=== PATIENT | female | born 1975 | race Caucasian/White ===

== ENCOUNTER → 2016-06-17 | Outpatient (CLI) | payer OTHER ==
--- NOTE | 2016-06-17 20:30 | CT ---
EXAMINATION TYPE: CT abdomen pelvis w con DATE OF EXAM: 06/17/2016 5:11 PM HISTORY: LLQ pain CT DLP: 828.6mGycm Automated Exposure Control for Dose Reduction was Utilized. CONTRAST: CT scan of the abdomen and pelvis is performed with IV Contrast, patient injected with 100 mL of Omni paque 300. COMPARISON: None. FINDINGS: LUNG BASES: No significant abnormality is appreciated. LIVER/GB: Cholecystectomy clips are noted. PANCREAS: No significant abnormality is seen. SPLEEN: No significant abnormality is seen. ADRENALS: No significant abnormality is seen. KIDNEYS: No significant abnormality is seen. BOWEL: The oral contrast does not reach colonic level. No suspicious small or large bowel dilatation is seen. Normal-appearing appendix is seen from cecum. Somewhat redundant sigmoid colon is present. UTERUS/ADNEXA: Uterus is surgically absent or markedly atrophic in appearance. LYMPH NODES: No greater than 1cm abdominal or pelvic lymph nodes are appreciated. OSSEOUS STRUCTURES: Mild facet arthropathy lower lumbar levels is seen. OTHER: No significant additional abnormality is seen. IMPRESSION: No significant acute finding is seen to account for patient's clinical symptoms.
== END | disposition home or self-care (01) ==
LOC: RADCTMAIN 15:44
PROVIDERS: ATTEND Family Medicine
DX: R10.9 Unspecified abdominal pain (principal)
CPT/HCPCS: 74177; Q9967

== ENCOUNTER → 2016-10-10 | Outpatient (CLI) | payer OTHER ==
--- NOTE | 2016-10-10 17:09 | XR ---
EXAMINATION TYPE: XR Hip Bilateral Complete DATE OF EXAM: 10/10/2016 COMPARISON: NONE HISTORY: Hip pain TECHNIQUE: 4 views FINDINGS: AP and frog leg views of both hips show no fracture nor dislocation. Joint spaces are cherrie l. IMPRESSION: Normal bilateral hip exam.
== END | disposition home or self-care (01) ==
LOC: RADXRMAIN 16:46
PROVIDERS: ATTEND Family Medicine
DX: M25.552 Pain in left hip (principal); M25.551 Pain in right hip
CPT/HCPCS: 73521

== ENCOUNTER → 2017-05-19 | Outpatient (CLI) | payer OTHER ==
[2017-05-16 14:47] VITALS: BMI 29.9
[2017-05-19 12:24] VITALS: BP 101/73; PULSE 65; RESP 16
--- NOTE | 2017-05-19 12:47 | P.CONS ---
History of Present Illness - Reason for Consult Consult date: 05/19/17 - Chief Complaint Left lower abdominal pain - History of Present Illness This is a 42-year-old female with history of left lower abdominal pain for which she had tubal ligation and hysterectomy then left inguinal hernia repair with the pain did not change after the surgeries. The pain is constant does fluctuate in intensity sometimes it prevents the patient from falling asleep however it does not wake her up once she is asleep. The pain does not radiate and it is localized in the left inguinal area. The patient denies any tingling or numbness in the area. There are no exacerbating or relieving factors. The patient failed to respond to Lyrica previously and right now she takes only ibuprofen for her pain. She also tried [place] but she did not like the side effects of it and she stopped using it. The patient had an injection at her primary care physician office in that area which helped her pain for 1 day but the repeated injection did not give her any relief of her pain. The patient describes her pain as sharp in quality. Review of Systems Constitutional: Denies as per HPI, Denies anorexia, Denies chills, Denies chronic headaches, Denies chronic pain, Denies daytime sleepiness, Denies fatigue, Denies fever, Denies lethargy, Denies malaise, Denies night sweats, Denies poor appetite, Denies sweats, Denies weakness, Denies weight gain, Denies weight loss Ears, nose, mouth and throat: Denies as per HPI, Denies ant. neck pain, Denies bleeding gums, Denies dental pain, Denies dysphagia, Denies epistaxis, Denies headache, Denies hoarseness, Denies mouth pain, Denies nasal congestion, Denies nasal discharge, Denies neck fullness/pressure, Denies neck lump, Denies nose pain, Denies odynophagia, Denies post-nasal drip, Denies sinus pain, Denies sinus pressure, Denies swelling in mouth, Denies swelling in throat, Denies sore throat, Denies vertigo, Denies voice changes Cardiovascular: Denies as per HPI, Denies chest pain, Denies claudication, Denies decreased exercise tolerance, Denies dyspnea on exertion, Denies edema, Denies high blood pressure, Denies irregular heart beat, Denies leg edema, Denies lightheadedness, Denies orthopnea, Denies palpitations, Denies paroxysmal nocturnal dyspnea, Denies phlebitis, Denies rapid heart beat, Denies shortness of breath, Denies syncope Respiratory: Denies as per HPI, Denies congestion, Denies cough, Denies cough with sputum, Denies dyspnea, Denies excessive sputum, Denies hemoptysis, Denies home oxygen, Denies pain, Denies pain on inspiration, Denies pleurisy, Denies respiratory infections, Denies sleep apnea, Denies snoring, Denies wheezing Gastrointestinal: Reports abdominal pain Genitourinary: Denies as per HPI, Denies abnormal vaginal bleeding, Denies decreased libido, Denies difficulty conceiving, Denies difficulty voiding, Denies dysmenorrhea, Denies dyspareunia, Denies dysuria, Denies flank pain, Denies genital sores, Denies hematuria, Denies hot flashes, Denies incomplete emptying, Denies kidney stones, Denies menorrhagia, Denies mixed incontinence, Denies nocturia, Denies pelvic pain, Denies post void dribbling, Denies , Denies prolapse symptoms, Denies stress incontinence, Denies urge incontinence , Denies urgency, Denies urinary frequency, Denies vaginal discharge, Denies vaginal dryness, Denies vaginal itching, Denies vaginal odor Past Medical History Past Medical History: Asthma Additional Past Medical History / Comment(s): has mesh from hernia surgery " body is rejecting it"- causing abdominal pain. childhood asthma History of Any Multi-Drug Resistant Organisms: None Reported Past Surgical History: Cholecystectomy, Hernia Repair, Hysterectomy Additional Past Surgical History / Comment(s): D&C Left inguinal hernia repair - November 2015 Past Anesthesia/Blood Transfusion Reactions: No Reported Reaction Additional Past Anesthesia/Blood Transfusion Reaction / Comm: Pt has never recieved blood. Past Psychological History: No Psychological Hx Reported Additional Psychological History / Comment(s): . Smoking Status: Former smoker Past Alcohol Use History: None Reported Additional Past Alcohol Use History / Comment(s): quit smoking 20 yrs ago, smoked for 3 yrs, < 1 PPD Past Drug Use History: None Reported - Past Family History Father Family Medical History: Hypertension Mother Family Medical History: No Reported History Additional Family Medical History / Comment(s): Mother is healthy. Pt states maternal grandmother had breast cancer. Medications and Allergies Home Medications Medication Instructions Recorded Confirmed Type Multivitamin [Children's 2 tab PO DAILY 08/09/14 05/19/17 History Multivitamins] Ibuprofen [Motrin] 800 mg PO BID PRN 05/16/17 05/19/17 History Allergies Allergy/AdvReac Type Severity Reaction Status Date / Time Penicillins Allergy Rash/Hives Verified 05/19/17 12:08 Physical Exam Vitals: Vital Signs Pulse Resp BP 05/19/17 12:09 65 16 101/73 - Psychiatric Psychiatric: A&O x's 3, appropriate affect The patient is obese alert oriented 3 in no apparent distress. Lungs are clear to auscultation, heart is regular no murmurs. The patient has normal muscle strength in the lower extremities symmetrically. Straight leg raising test negative on the left side Flexion of the left hip did not increases her abdominal pain Internal and external rotation of the left hip did not increases her abdominal pain Alexandru's test negative on the left side She does have mild tenderness right beneath her inguinal hernia repair incision between the inguinal ligament inferiorly and the pubic tubercle medially and the previous scar superiorly. The skin around this painful area looks normal with no erythema. Assessment and Plan Plan: This is a 42-year-old female with left groin pain that did not improve after hysterectomy and inguinal hernia repair. Pain is localized to the area and does not radiate. There is no paresthesia in the area. I'm not sure about the etiology of this pain however can try to do a diagnostic left ilioinguinal nerve block under ultrasound guidance and depending on the results we'll decide our next step. There might also be a component of myofascial pain. The patient failed to respond to Lyrica previously and she takes only ibuprofen for her pain and she is to continue doing that. I thank you for the consultation
== END ==
LOC: EDSEX 11:30 → PNWHC3 11:39
PROVIDERS: ATTEND Anesthesiology
DX: R10.30 Lower abdominal pain, unspecified (principal); Z90.710 Acquired absence of both cervix and uterus; Z98.890 Other specified postprocedural states; Z88.0 Allergy status to penicillin; Z79.1 Long term (current) use of non-steroidal anti-inflammatories (NSAID); Z87.891 Personal history of nicotine dependence
CPT/HCPCS: 99211

== ENCOUNTER 2017-06-16 08:13 | Day surgery (SDC) | payer OTHER ==
[2017-06-12 09:30] VITALS: BMI 29.9
[2017-06-16] MEDS ORDERED: LIDOCAINE 1% 20 ML VIAL (10MG/ML) FOR IV START INTRADERMA ONE (08:48)
--- NOTE | 2017-06-16 08:48 | P.PCN ---
Date of Procedure: 06/16/17 Preoperative Diagnosis: Ilioinguinal Neuralgia Postoperative Diagnosis: Ilioinguinal Neuralgia Condition: stable Disposition: PACU Description of Procedure: Preoperative diagnoses: 1-ilioinguinal neuralgia. Postoperative diagnoses: 1- Ilioinguinal neuralgia. Procedure= Ilioinguinal nerve block with ultrasound guidance. Anesthesia= conscious sedation with Versed 2 mg local infiltration with lidocaine 1% 4 ml Estimated blood loss=minimal. Procedure indication: the patient had a history of severe chronic groin pain, diagnosed with ilioinguinal neuralgia , chronic post surgical pain, and unresponsive to conservative treatment. and patient here to have ilioinguinal nerve block Procedure description: The patient was seen and identified in the preoperative holding area, risks and benefits and alternative of the procedure and possible complications discussed with the patient, and he agreed with the preceding, patient signed the consent, an IV was started, and vital signs were monitored and were stable throughout the procedure, patient was placed in the supine position on the stretcher and the groin and lower abdomen area was prepped, and draped with a sterile fashion , vital signs were closely monitored during the procedure, the linear ultrasound probe was placed in the medial and superior aspect of the on the iliac Crest, ,the Transvurs abdominus muscle,and the internal obique muscules identified, and the locations of the ilioinguinal nerve identified , local infiltration of the skin and subcutaneous tissue with lidocaine 1% 2 mL then a 20 -gauge 2 inches ultrasound needle advanced slowly with continous visualizations of the needle tip , and needle was in close proxemity of the ilioinguinal nerve , and after appropriate needle placement confirmed withe ultrasound ,the negative aspiration for heme , and there was no paresthesia during the injection, 10 ml of Marcaine 0.5% and 40 mg Kenalog , injected after negative aspiration, the needle removed, Then the skin was cleaned and a Band-Aid applied, the patient transported to recovery room in stable condition and he was monitored for 30 minutes before he was discharged home and then patient was reexamined before going home and patient was discharged in stable condition and patient will follow up with the pain clinic in a few weeks
[2017-06-16 08:58] VITALS: TEMP 97.7
[2017-06-16] MEDS ORDERED: LACTATED RINGERS 1,000 ML IV ONE (09:08)
[2017-06-16] MEDS ORDERED: IV FLUID CONTINUATION 1,000 ML IV ONE (10:03)
[2017-06-16 10:09] VITALS: RESP 18
[2017-06-16 10:21] VITALS: BP 100/76; PULSE 78
== END 2017-06-16 10:34 | disposition home or self-care (01) ==
LOC: ORPAIN 08:13
PROVIDERS: ATTEND Anesthesiology
DX: G89.29 Other chronic pain (principal); G58.8 Other specified mononeuropathies; Z88.0 Allergy status to penicillin; Z90.710 Acquired absence of both cervix and uterus
CPT/HCPCS: 64425; J2250; J3301; 99152

== ENCOUNTER 2017-07-16 06:22 | Day surgery (SDC) | payer OTHER ==
[2017-07-14 12:02] VITALS: BMI 29.9
[2017-07-16 06:45] VITALS: RESP 16; TEMP 97.9
[2017-07-16] MEDS ORDERED: LIDOCAINE 1% 20 ML VIAL (10MG/ML) FOR IV START INTRADERMA ONE (06:48)
[2017-07-16] MEDS ORDERED: LACTATED RINGERS 1,000 ML IV ONE (06:48)
[2017-07-16] MEDS ORDERED: LACTATED RINGERS 1,000 ML IV SCH (07:00)
--- NOTE | 2017-07-16 07:50 | P.PCN ---
Date of Procedure: 07/16/17 Procedure(s) Performed: te: 06/16/17 08:45 Date of Procedure: 07/16/2017 Preoperative Diagnosis: Left Ilioinguinal Neuralgia Postoperative Diagnosis: Left Ilioinguinal Neuralgia Condition: stable Disposition: PACU Description of Procedure: Preoperative diagnoses: 1- left ilioinguinal neuralgia. Postoperative diagnoses: 1-left Ilioinguinal neuralgia. Procedure= left Ilioinguinal nerve block with ultrasound guidance. Anesthesia= moderate sedation with Versed 2 mg and Fentanyle 50 mcg ,local infiltration with lidocaine 1% 2 ml Estimated blood loss=none Procedure indication: the patient had a history of severe chronic left groin pain, diagnosed with left ilioinguinal neuralgia , chronic post surgical pain, and unresponsive to conservative treatment. and patient here to have left ilioinguinal nerve block Procedure description: The patient was seen and identified in the preoperative holding area, risks and benefits and alternative of the procedure and possible complications discussed with the patient, and he agreed with the preceding, patient signed the consent, an IV was started, and vital signs were monitored and were stable throughout the procedure, patient was placed in the supine position on the stretcher and the groin and lower abdomen area was prepped, and draped with a sterile fashion , vital signs were closely monitored during the procedure, the linear ultrasound probe was placed in the medial and superior aspect of the on the iliac Crest, ,the Transvurs abdominus muscle,and the internal obique muscules identified, and the locations of the ilioinguinal nerve identified , local infiltration of the skin and subcutaneous tissue with lidocaine 1% 2 mL then a 20 -gauge 4 inches ultrasound needle advanced slowly with continous visualizations of the needle tip , and needle was in close proxemity of the ilioinguinal nerve , and after appropriate needle placement confirmed withe ultrasound ,the negative aspiration for heme , and there was no paresthesia during the injection, 10 ml of Marcaine 0.5% and 80 mg Kenalog , injected after negative aspiration, the needle removed, Then the skin was cleaned and a Band-Aid applied, the patient transported to recovery room in stable condition and he was monitored for 30 minutes before he was discharged home and then patient was reexamined before going home and patient was discharged in stable condition and patient will follow up with the pain clinic in a few weeks
[2017-07-16] MEDS ORDERED: IV FLUID CONTINUATION 1,000 ML IV ONE (07:56)
[2017-07-16 08:13] VITALS: PULSE 60
[2017-07-16 08:20] VITALS: BP 103/70
== END 2017-07-16 08:29 | disposition home or self-care (01) ==
LOC: ORPAIN 06:22
PROVIDERS: ATTEND Specialist
DX: G58.8 Other specified mononeuropathies (principal); Z88.0 Allergy status to penicillin
CPT/HCPCS: 64425; J2250; J3301; J3010; 99152

== ENCOUNTER → 2017-07-29 | Outpatient (CLI) | payer OTHER | LOC: PNWHC3 14:18 | PROVIDERS: ATTEND Specialist | DX: R10.30 Lower abdominal pain, unspecified (principal); Z53.9 Procedure and treatment not carried out, unspecified reason ==

== ENCOUNTER → 2017-08-20 | Outpatient (CLI) | payer OTHER ==
[2017-08-20 13:51] VITALS: BP 109/75; PULSE 85; RESP 18
--- NOTE | 2017-08-20 14:30 | P.PN ---
Progress Note - Text Progress Note Date: 08/20/17 Patient returns for followup for chronic left sided groin pain. Patient recently underwent ilioinguinal NB x 2 which provided numbness of the skin overlying the left groin but no relief. Patient continues on no regular medications for pain. Patient denies adverse drug effects from medications. Today, pt denies new-onset weakness, bowel/bladder incontinence, or any other signs or symptoms of cauda equina syndrome. There are no signs of acute intoxication, and no indications of medication diversion or overuse. In addition to above, 13-point review of systems is also negative for chest pain , shortness of breath, changes in vision, changes in hearing, new onset weakness , abdominal pain, diarrhea, extreme fatigue, malaise, fever, skin changes, homicidal or suicidal ideation, or bowel or bladder incontinence. Vital Signs: Reviewed in EMR Gen: WDWN, AAOx3, NAD HEENT: NCAT, EOMI, hearing grossly normal Pulm: resp unlabored Neck: supple, trachea midline Lower extremity: TTP left groin medial to femoral artery Imaging: Reviewed in EMR Assessment: 1. chronic postsurgical pain 2. s/p hernia repair Plan: 1. Explanation: Opioid and psychological risk scores were reviewed. Diagnoses , prognoses, and multiple treatment options including but not limited to physical therapy, interventional therapies, adjuvant medical therapies, narcotic medication therapies, and surgery were discussed with the patient and all questions were answered to the patient's satisfaction. 2. Opioid agreement: no opioids prescribed today 3. Counseling: The patient was counseled extensively on BODY MASS INDEX, EXERCISE. Specifically, the patient was instructed regarding the importance of weight control, and exercise in the context of both chronic pain and overall health. 4. Procedures: none 5. Consultations: None 6. Investigations: MAPS queried and appropriate 7. Medications: none prescribed 8. Morphine equivalents per day prescribed: zero 9. Disposition: f/u PRN. Patient has pain in an isolated location in the groin , and has had two IINBs without any relief of pain. I advised her to return to surgeon for further options. PQRS measures: 1-Patient's medications are documented in the chart. 2-Tobacco use is negative 3-Patient has not had a pneumococcal vaccine. 4-Advanced care planning discussed, patient unable to give. 5-Opioid contract NOT signed with the patient. 6-Pain positive, follow-up visit or procedure scheduled 7-Patient's blood pressure measured and documented, and patient will follow up with the primary care due to hypertension. 8-Patient's weight was measured, and body mass index ABOVE the normal limits, and counseling was done. Patient instructed to follow up with PCP. 9-Patient WAS NOT identified as an unhealthy alcohol user.
== END | disposition home or self-care (01) ==
LOC: PNWHC3 13:41
PROVIDERS: ATTEND Anesthesiology
DX: G89.28 Other chronic postprocedural pain (principal); R10.32 Left lower quadrant pain; Z98.890 Other specified postprocedural states
CPT/HCPCS: 99211

== ENCOUNTER 2019-04-09 20:22 | Emergency (ER) | payer OTHER ==
[2019-04-09 20:29] VITALS: BP 115/81; PULSE 93; RESP 20; TEMP 97.9
--- NOTE | 2019-04-09 20:54 | ED ---
Head Injury HPI - General Chief complaint: Head Injury Stated complaint: [facility] Head Injury Time Seen by Provider: 04/09/19 20:33 Source: patient Mode of arrival: ambulatory Limitations: no limitations - History of Present Illness Initial comments: 44-year-old female patient presents to the emergency department today for evaluation of headache and memory disturbance. Patient states 6 days ago she sustained a head injury at work. The states that she struck her head on a metal beam on the ceiling. She states that she was evaluated 2 days after when she began experiencing severe persistent headaches. Patient states she is also experiencing "foggy" vision. She states that she was evaluated at urgent care and diagnosed with concussion. Patient states over the last couple of days she has had increasing difficulty with her memory. States that she will be driving and forget where she is going, we'll get to the grocery a forgot why she is there, and states that she has forgotten her phone and left lights on. States that she does not usually have problems like this. Friend who is present states that patient is talking different than usual, states that she sound "drunk". She states that the headaches seem to have improved however they are still intermittent. States they are over the left confucianist and left side of her head. Patient states her vision remains foggy. Patient denies any use of anticoagulants or antiplatelet medication. Denies history of head injury. Patient denies any neck pain, back pain, chest pain, shortness of breath, dizziness, weakness, abdominal pain, nausea, vomiting, or difficulties with bowel movements or urination. - Related Data Allergies/Adverse reactions: Allergies Allergy/AdvReac Type Severity Reaction Status Date / Time Penicillins Allergy Rash/Hives Verified 04/09/19 20:29 Review of Systems ROS Statement: Those systems with pertinent positive or pertinent negative responses have been documented in the HPI. ROS Other: All systems not noted in ROS Statement are negative. Past Medical History Past Medical History: Asthma Additional Past Medical History / Comment(s): has mesh from hernia surgery "body is rejecting it"- causing abdominal pain. childhood asthma History of Any Multi-Drug Resistant Organisms: None Reported Past Surgical History: Cholecystectomy, Hernia Repair, Hysterectomy Additional Past Surgical History / Comment(s): D&C, Left inguinal hernia repair - November 2015 Past Anesthesia/Blood Transfusion Reactions: No Reported Reaction Additional Past Anesthesia/Blood Transfusion Reaction / Comment(s): Pt has never recieved blood. Past Psychological History: No Psychological Hx Reported Smoking Status: Former smoker Past Alcohol Use History: None Reported Past Drug Use History: None Reported - Past Family History Father Family Medical History: Hypertension Mother Family Medical History: No Reported History Additional Family Medical History / Comment(s): Mother is healthy. Pt states maternal grandmother had breast cancer. General Exam Limitations: no limitations General appearance: alert, in no apparent distress, other (This is a well- developed, well-nourished adult female patient in no acute distress. Vital signs upon presentation are temperature 97.9F, pulse 93, respirations 20, blood pressure 115/81, pulse ox 96% on room air.) Head exam: Present: atraumatic, normocephalic, normal inspection Eye exam: Present: normal appearance, PERRL, EOMI. Absent: scleral icterus, conjunctival injection, nystagmus, periorbital swelling Neck exam: Present: normal inspection. Absent: tenderness, meningismus, lymphadenopathy Respiratory exam: Present: normal lung sounds bilaterally. Absent: respiratory distress, wheezes, rales, rhonchi, stridor Cardiovascular Exam: Present: regular rate, normal rhythm, normal heart sounds. Absent: systolic murmur, diastolic murmur, rubs, gallop, clicks GI/Abdominal exam: Present: soft, normal bowel sounds. Absent: distended, tenderness, guarding, rebound, rigid Neurological exam: Present: alert, oriented X3, CN II-XII intact Expanded Speech: Present: fluid speech Cranial nerves: EOM's Intact: Normal, Tongue Deviation: Normal, Nystagmus: Normal Cerebellar function: Finger to Nose: Normal Motor strength exam: RUE: 5, LUE: 5, RLE: 5, LLE: 5 Eye Response: (4) open spontaneously Motor Response: (6) obeys commands Verbal Response: (5) oriented Vicki Total: 15 Psychiatric exam: Present: normal affect, normal mood Skin exam: Present: warm, dry, intact, normal color. Absent: rash Course Vital Signs 04/09/19 20:25 Temperature 97.9 F Pulse Rate 93 Respiratory 20 Rate Blood Pressure 115/81 O2 Sat by Pulse 96 Oximetry Medical Decision Making - Medical Decision Making 44-year-old female patient percents into the emergency department today for evaluation of memory difficulties and persistent headaches after head injury 6 days ago. Physical examination is unremarkable. She is neurologically intact with no focal deficits. Answers all questions appropriately. CT brain and facial bones was negative for any acute abnormalities. We did discuss concussion as a cause for her symptoms. She'll be discharged pop with her primary care physician as well as neurologist. She is given the next few days off of work and instructed to decrease mental and physical stimulation. Return parameters are discussed in detail. She verbalizes understanding and agrees with this plan. - Radiology Data Radiology results: report reviewed, image reviewed CT brain without contrast was obtained. Report was reviewed in its entirety. Impression by Dr. Kay shows impression shows normal unenhanced head computed tomography scan. CT facial bones without contrast was obtained. Report is reviewed in its entirety. Impression by Dr. Kay shows negative computed tomography scan of the facial bones. No fracture. Disposition Clinical Impression: Concussion Disposition: HOME SELF-CARE Condition: Good Instructions (If sedation given, give patient instructions): Concussion (ED) Additional Instructions: Increase fluids. Rest. Decreased physical and mental stimulation. Follow-up with neurology for further evaluation as soon as possible. Follow-up through primary care physician for recheck in 1-2 days. Return to the emergency department immediately for any new, worsening, or concerning symptoms. Is patient prescribed a controlled substance at d/c from ED?: No Referrals: Lawrence Jaquez DO [Primary Care Provider] - 1-2 days Jewell Ribera MD [Medical Doctor] - 1-2 days Time of Disposition: 21:34
--- NOTE | 2019-04-09 21:17 | CT ---
EXAMINATION TYPE: CT brain wo con DATE OF EXAM: 04/09/2019 COMPARISON: None HISTORY: headache X 6 days following head injury CT DLP: combined DLP 785 mGycm Automated exposure control for dose reduction was used. Ventricles and sulci appear normal. There is no mass effect nor midline shift. There is no sign of in tracranial hemorrhage. The calvarium is intact. There is no evidence of cerebral edema. Skull base is intact. Impression new left normal unenhanced head CT scan.
--- NOTE | 2019-04-09 21:23 | CT ---
EXAMINATION TYPE: CT facial bones wo con DATE OF EXAM: 04/09/2019 COMPARISON: None HISTORY: headache X 6 days following head injury CT DLP: combined DLP 785 mGycm Automated exposure control for dose reduction was used. Multiple axial sections were obtained from the bottom of the mandible to the top of the frontal sinus es without contrast. The mandibular ring is intact. Temporomandibular joints appear intact. Zygomatic arches appear normal . There is normal appearance of the maxilla. Nasal bone is intact. Orbital margins are intact. There is no evidence of a blowout fracture. There is bilateral patency of the ostiomeatal complex. There is normal aeration of the paranasal sinuses. There is no evidence of orbital mass. IMPRESSION: Negative CT scan of the facial bones. No fracture.
== END 2019-04-09 21:45 | disposition home or self-care (01) ==
LOC: EC 20:22
DX: S06.0X0A Concussion without loss of consciousness, initial encounter (principal); Z87.891 Personal history of nicotine dependence; Z88.0 Allergy status to penicillin; W22.8XXA Striking against or struck by other objects, initial encounter; Y92.69 Other specified industrial and construction area as the place of occurrence of the external cause; Y99.0 Civilian activity done for income or pay
CPT/HCPCS: 70450; 70486; 99283

== ENCOUNTER 2022-02-16 07:41 | Emergency (ER) | payer OTHER ==
[2022-02-16 07:59] VITALS: TEMP 98
[2022-02-16] MEDS ORDERED: KETOROLAC 15 MG/ML 1 ML VIAL IM STA (08:29)
--- NOTE | 2022-02-16 08:29 | ED ---
General Adult HPI - General Chief complaint: Skin/Abscess/Foreign Body Stated complaint: Breast pain Time Seen by Provider: 02/16/22 08:05 Source: patient, RN notes reviewed Mode of arrival: ambulatory Limitations: no limitations - History of Present Illness Initial comments: Patient is a 46-year-old female presenting to the emergency room with complaints of left breast pain. She reports that she was seen at urgent care on Friday (3 days ago) for pain and lump in her left breast and was placed on clindamycin for mastitis. She reports that the pain and swelling has worsened and she called the urgent care back and was advised to present to the emergency room. She states on Friday of this week she had bilateral nipple piercings that she removed due to both breasts swelling. She states that her right breast swelling resolved without any further issues however her left breast continues to be swollen and tender with redness on the lower outer aspect of the breast near the nipple ranging from approximately 2:00 to 5:00. She also has tenderness in the upper outer aspect. There is a large area of soft tissue inflammation at the area of erythema along with at the axilla tail region. She has not fused erythremia streaking or warmth to the breast. She denies any nipple drainage or discharge. She states that she has been taking clindamycin as prescribed. She denies any other symptoms including any chest pain, shortness of breath, abdominal pain, nausea, vomiting, fevers or chills. She has past medical history significant for asthma. - Related Data Allergies Allergy/AdvReac Type Severity Reaction Status Date / Time Penicillins Allergy Rash/Hives Verified 02/16/22 07:59 Review of Systems ROS Statement: Those systems with pertinent positive or pertinent negative responses have been documented in the HPI. ROS Other: All systems not noted in ROS Statement are negative. Past Medical History Past Medical History: Asthma Additional Past Medical History / Comment(s): has mesh from hernia surgery "body is rejecting it"- causing abdominal pain. childhood asthma History of Any Multi-Drug Resistant Organisms: None Reported Past Surgical History: Cholecystectomy, Hernia Repair, Hysterectomy Additional Past Surgical History / Comment(s): D&C, Left inguinal hernia repair - November 2015 Past Anesthesia/Blood Transfusion Reactions: No Reported Reaction Additional Past Anesthesia/Blood Transfusion Reaction / Comment(s): Pt has never recieved blood. Past Psychological History: No Psychological Hx Reported Smoking Status: Never smoker Past Alcohol Use History: None Reported Past Drug Use History: None Reported - Past Family History Father Family Medical History: Hypertension Mother Family Medical History: No Reported History Additional Family Medical History / Comment(s): Mother is healthy. Pt states maternal grandmother had breast cancer. General Exam General appearance: alert, in no apparent distress Head exam: Present: atraumatic, normocephalic, normal inspection Eye exam: Present: normal appearance, PERRL, EOMI. Absent: scleral icterus, conjunctival injection, periorbital swelling ENT exam: Present: normal exam, mucous membranes moist Neck exam: Present: normal inspection, full ROM Respiratory exam: Present: normal lung sounds bilaterally, other (Left breast tenderness and swelling with palpable area of tissue inflammation cystic or fibrocystic in nature at upper outer region towards axilla along with at area of erythema as indicated below.). Absent: respiratory distress, wheezes, rales, rhonchi, stridor, accessory muscle use Cardiovascular Exam: Present: regular rate, normal rhythm, normal heart sounds. Absent: systolic murmur, diastolic murmur, rubs, gallop, clicks GI/Abdominal exam: Present: soft, normal bowel sounds. Absent: distended, tenderness, guarding, rebound, rigid Extremities exam: Present: normal inspection. Absent: pedal edema, joint swelling Back exam: Present: normal inspection, full ROM Neurological exam: Present: alert, oriented X3, CN II-XII intact Psychiatric exam: Present: normal affect, normal mood Skin exam: Present: erythema (Left breast extending full length of breasts from chest wall to areole a ranging from approximately) Course Vital Signs 02/16/22 02/16/22 07:56 10:37 Temperature 98 F Pulse Rate 68 82 Respiratory 18 18 Rate Blood Pressure 118/75 105/69 O2 Sat by Pulse 99 100 Oximetry Medical Decision Making - Medical Decision Making 46-year-old female presenting to the emergency room with complaints of breast pain and swelling ongoing for approximately 1 week unchanged with clindamycin from urgent care. Will obtain CBC, BMP and ultrasound of the left breast. Will give Toradol for pain. Will defer IV antibiotics at this time. Verbal report of ultrasound received from substation technician; she reports no focal collection of fluid, tissue swelling consistent with inflammation along with tenderness to an enlarged lymph node near the axilla region consistent with inf ection. Will give one-time IV dose of clindamycin continue oral clindamycin at this time. Discussed potential for alternative antibiotic therapy of oral Bactrim. Patient agreeable to continue oral clindamycin at this time. and concerns answered. Return parameters to the emergency room reviewed. Will discharge home on oral antibiotics in stable condition with follow-up with her primary care provider. Case discussed with Dr. Anguiano. Disposition Clinical Impression: Mastitis, left, acute Disposition: HOME SELF-CARE Condition: Stable Instructions (If sedation given, give patient instructions): Mastitis (ED) Additional Instructions: Please complete course of clindamycin antibiotic as already prescribed. Stay well hydrated. Utilize ibuprofen for fevers and pain and swelling as needed. Please follow-up with your primary care provider. Please return to the Emergency Department if symptoms worsen or any other concerns. Is patient prescribed a controlled substance at d/c from ED?: No Referrals: Manish Villeda MD [Primary Care Provider] - 1-2 days Time of Disposition: 11:21
[2022-02-16] MEDS ORDERED: CLINDAMYCIN 300 MG in DEXTROSE 5% IN WATER 50 ML IVPB STA ×2 (11:08)
[2022-02-16 11:25] LABS: Basophils # (A) 0.1 k/uL (0-0.2); Basophils % (A) 1 %; Eosinophils # (A) 0.1 k/uL (0-0.7); Eosinophils % (A) 2 %; HCT 39.7 % (34.0-46.0); HGB 13.8 gm/dL (11.4-16.0); Lymphocytes # (A) 1.1 k/uL (1.0-4.8); Lymphocytes % (A) 24 %; MCH 31.9 pg (25.0-35.0); MCHC 34.7 g/dL (31.0-37.0); Mean Platelet Volume 7.8; Monocytes # (A) 0.2 k/uL (0-1.0); Monocytes % (A) 5 %; Neutrophils # (A) 3.1 k/uL (1.3-7.7); Neutrophils % (A) 66 %; Platelet Count 431 k/uL (150-450); RBC 4.32 m/uL (3.80-5.40); WBC 4.6 k/uL (3.8-10.6)
[2022-02-16 11:37] LABS: African American GFR (CKD) >90 (>60 ml/min/1.73 sqM); Anion Gap 7 mmol/L; Blood Urea Nitrogen 4 mg/dL (7-17); Calcium 9.4 mg/dL (8.4-10.2); Carbon Dioxide 26 mmol/L (22-30); Chloride 105 mmol/L (98-107); Glucose 92 mg/dL (74-99); Non-African American GFR(CKD) >90 (>60 ml/min/1.73 sqM); Potassium 4.1 mmol/L (3.5-5.1); Sodium 138 mmol/L (137-145)
[2022-02-16 11:53] VITALS: RESP 16
[2022-02-16 12:38] VITALS: BP 130/88; PULSE 68
--- NOTE | 2022-02-18 07:28 | USB ---
Risk Values: Yamila 5 year model risk: 0.5%. NCI Lifetime model risk: 6.5%. Findings: Ultrasound imaging of the left breast extending from 1-3 o'clock 6 cm from the nipple, the axillary tail and the retroareolar region. Hypoechoic mass measuring 1.4 x 1.3 x 1.2 cm with internal color Doppler flow and is antiparallel orientation. No organizing fluid collections identified. No areas of hyperemia identified. Overall Assessment: Suspicious, BI-RAD 4 Management: Ultrasound Core Biopsy of the left breast. A clinical breast exam by your physician is recommended on an annual basis and results should be correlated with mammographic findings. This exam should not preclude additional follow-up of suspicious palpable abnormalities. Results were given to the patient verbally at the time of exam. Electronically signed and approved by: Vinnie Hermosillo DO
== END 2022-02-16 12:38 | disposition home or self-care (01) ==
LOC: EC 07:41
DX: N61.0 Mastitis without abscess (principal); J45.909 Unspecified asthma, uncomplicated; Z88.0 Allergy status to penicillin
CPT/HCPCS: 80048; 85025; 76642; 99284; 36415; 96365; 96372; J1885

== ENCOUNTER → 2022-02-28 | Day surgery (SDC) | payer OTHER ==
--- NOTE | 2022-03-11 14:07 | MM ---
Reason for Exam: Post Procedure Mammogram. Patient History: Menarche at age 15. First Full-Term at age 25. Hysterectomy at age 38. Maternal grandmother had breast cancer. Risk Values: Yamila 5 year model risk: 0.7%. NCI Lifetime model risk: 8.7%. Tissue Density: Left: The breast tissue is heterogeneously dense. This may lower the sensitivity of mammography. Pathology Description: Location: axillary tail. Marker Left Behind. Needle Type: Mammotome Cores: 5 Gauge: 13 The procedure of ultrasound guided core biopsy was explained to the patient. Benefits, alternatives, and risks were discussed. An informed consent was then obtained. We note that no mammographic workup was performed. As the patient is already here and findings may be on the basis of mastitis and reactive lymphadenopathy, we are proceeding with biopsy despite the absence of a complete diagnostic work up. There is left axillary lymphadenopathy with multiple rounded and borderline to mildly enlarged lymph nodes. The largest lymph node is targeted for biopsy. This measures up to 1.9 x 1.5 x 1.4 cm. This also happens to be the deepest lymph node. The patient was placed in supine positioning for imaging and for the procedure. The overlying skin was prepped and draped in usual sterile fashion. Lidocaine was used as anesthetic into the skin followed by lidocaine/epinephrine into the subcutaneous tissue and around the left axillary node. Under ultrasound guidance, a 13-gauge vacuum-assisted mammotome biopsy gun was used to obtain 5 core samples. Following this, a [employer]dromark coil clip was left in lesion. The patient tolerated the procedure well without any immediate complication. The patient was kept in the radiology department for short stay after the procedure and then discharged home in stable condition. Postprocedure mammogram: The patient was transferred to mammography for physician ordered post procedure mammogram for clip placement verification. Postbiopsy mammogram showed the biopsy clip, likely due to the biopsied lymph node located outside the [id number]. An enlarged low axillary tail lymph node is noted. There are dense tissue throughout the breasts. Mammographic follow-up will be recommended especially if the lymph node returns as a reactive node. IMPRESSION: Successful, uncomplicated ultrasound guided core biopsy of the largest lymph node in the left axilla. This is located deep in the axilla and likely outside the field of view on the postbiopsy mammogram. Other enlarged left axillary nodes are also present. Findings may be on the basis of mastitis as the patient reports some improvement with antibiotic therapy. Note the absence of a proper diagnostic workup prior to the performance of this biopsy. 3 month follow-up mammogram and ultrasound will be recommended if benign biopsy results. Full pathology results to follow. Pathology Results: Result: Benign, Lymph node. LEFT BREAST AXILLA, ULTRASOUND GUIDED NEEDLE CORE BIOPSY: Benign reactive lymph node. Overall Assessment: Benign Assessment: MG diagnostic mammo LT wo CAD. - Left: Benign, BI-RAD 2. Management: Diagnostic Mammogram of the left breast in 6 months. Electronically signed and approved by: Jenni Kee M.D. Radiologist
== END ==
LOC: RADUSWWP 10:26
PROVIDERS: ATTEND Surgery
DX: N63.32 Unspecified lump in axillary tail of the left breast (principal); Z80.3 Family history of malignant neoplasm of breast
CPT/HCPCS: 88305; 77065; 19083; A4648

== ENCOUNTER → 2022-09-05 | Outpatient (CLI) | payer OTHER ==
--- NOTE | 2022-09-09 12:09 | MM ---
Reason for Exam: Follow-up at short interval from prior study. Last screening mammogram was performed 12 month(s) ago. Patient History: Menarche at age 15. First Full-Term at age 25. Hysterectomy at age 38. 02/28/2022, Benign US biopsy breast VAD LT on the left side. Maternal grandmother had breast cancer, age 45. Risk Values: Yamila 5 year model risk: 1.2%. NCI Lifetime model risk: 10.4%. Prior Study Comparison: 08/16/2020 Bilateral Screening Mammogram, [facility]. 09/05/2021 Bilateral Screening Mammogram, [facility]. 02/16/2022 Left US breast LT, [facility]. 02/28/2022 Left MG diagnostic mammo LT wo CAD., [facility]. Tissue Density: The breast tissue is extremely dense which could obscure a lesion on mammography. Findings: Analyzed By CAD. Abdomen appears symmetrical and stable. There are a few scattered benign calcifications present in the right breast. No suspicious groups of microcalcifications, spiculated or lobular masses, architectural distortion or other secondary signs of malignancy are mammographically apparent. Overall Assessment: Benign, BI-RAD 2 Management: Screening Mammogram of both breasts in 1 year. A negative mammogram report should not preclude additional follow up of suspicious palpable abnormalities. Patient should continue monthly self breast exam. A clinical breast exam by your physician is recommended on an annual basis and results should be correlated with mammographic findings. Electronically signed and approved by: Octavio Hogan M.D.
== END | disposition home or self-care (01) ==
LOC: RADMAMWWP 08:33
PROVIDERS: ATTEND Pediatrics
DX: R92.8 Other abnormal and inconclusive findings on diagnostic imaging of breast (principal); Z80.3 Family history of malignant neoplasm of breast
CPT/HCPCS: 77066; G0279; 77062

== ENCOUNTER 2022-12-21 18:23 | Emergency (ER) | payer OTHER ==
[2022-12-21 18:35] LABS: Glucose,Whole Blood 145 mg/dL (70-110)
[2022-12-21] MEDS ORDERED: NALOXONE 0.4 MG/ML 1 ML VIAL IVP STA (18:37)
[2022-12-21 18:43] VITALS: RESP 18
--- NOTE | 2022-12-21 18:51 | ED ---
General Adult HPI - General Chief complaint: Altered Mental Status Stated complaint: UNRESPONSIVE Time Seen by Provider: 12/21/22 18:31 Source: EMS Mode of arrival: EMS Limitations: altered mental status - History of Present Illness Initial comments: Patient presents to the ED by ambulance for evaluation of altered mental status. 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 Patient was placed in a c-collar for precaution per EMS. Per EMS, the patient's mother reports that the patient has a history of having "fluid around her brain", stating that she has had similar unresponsive episodes in the past. Patient's blood glucose was checked on arrival to the ED and a reading of 145 was obtained. Patient is opening her eyes in the ED, but she is not responding verbally. Patient diverts her arm from falling on her face when arm drop test was performed on her arrival to the ED. Patient is not answering any questions for me at this time. No other history is available at this time. - Related Data Home Medications Medication Instructions Recorded Confirmed Phentermine HCl [Adipex-P] 37.5 mg PO DAILY 02/21/22 12/21/22 Ergocalciferol (Vitamin D2) 1,250 mcg PO FR 12/21/22 12/21/22 [Drisdol (50,000 Iu)] Allergies Allergy/AdvReac Type Severity Reaction Status Date / Time Penicillins Allergy Rash/Hives Verified 12/21/22 20:16 Review of Systems ROS Statement: Those systems with pertinent positive or pertinent negative responses have been documented in the HPI. ROS Other: All systems not noted in ROS Statement are negative. Limitations: ROS unobtainable due to patients medical condition Past Medical History Past Medical History: Asthma Additional Past Medical History / Comment(s): has mesh from hernia surgery "body is rejecting it"- causing abdominal pain. childhood asthma History of Any Multi-Drug Resistant Organisms: None Reported Past Surgical History: Cholecystectomy, Hernia Repair, Hysterectomy Additional Past Surgical History / Comment(s): D&C, Left inguinal hernia repair - November 2015 Past Anesthesia/Blood Transfusion Reactions: No Reported Reaction Additional Past Anesthesia/Blood Transfusion Reaction / Comment(s): Pt has never recieved blood. Past Psychological History: No Psychological Hx Reported Smoking Status: Former smoker Past Alcohol Use History: None Reported Past Drug Use History: None Reported - Past Family History Father Family Medical History: Hypertension Mother Family Medical History: No Reported History Additional Family Medical History / Comment(s): Mother is healthy. Pt states maternal grandmother had breast cancer. General Exam Limitations: altered mental status General appearance: other (Patient is opening her eyes spontaneously, but she is not responding verbally; patient localizes to pain in all 4 extremities) Head exam: Present: atraumatic, normocephalic Eye exam: Present: PERRL ENT exam: Present: mucous membranes moist, TM's normal bilaterally Neck exam: Present: other (Trachea is in midline; c-collar is in place) Respiratory exam: Present: normal lung sounds bilaterally. Absent: respiratory distress, wheezes, rales, rhonchi, stridor Cardiovascular Exam: Present: regular rate, normal rhythm, normal heart sounds, other (Normal radial pulses bilaterally) GI/Abdominal exam: Present: soft. Absent: distended, tenderness, guarding Extremities exam: Present: normal inspection. Absent: pedal edema Back exam: Present: normal inspection Neurological exam: Present: other (Patient is opening her eyes spontaneously, but she is not responding verbally at this time; patient localizes to pain in all 4 extremities; PERRL) Skin exam: Present: warm, dry, intact, normal color Course Vital Signs 12/21/22 12/21/22 12/21/22 18:33 18:40 19:41 Temperature 97.8 F Pulse Rate 71 96 Respiratory 18 18 18 Rate Blood Pressure 127/79 125/74 O2 Sat by Pulse 99 98 Oximetry - Reevaluation(s) Reevaluation #1: 12/21/22 22:20 Patient is now completely alert and oriented 4. Patient and mother are aware of the patient's test results. Patient tells me that she recalls not feeling well while at work earlier today, but then she does not recall much else until she got to the ED today. Patient has been ambulatory to the bathroom in the ED a couple of times without any difficulty. Patient denies having any symptoms at this time, and she states that she wishes to be discharged home at this time. Patient's mother is in the ED at bedside with the patient, and she states that she feels comfortable to the patient home at this time. Patient and mother were counseled about altered mental status, and they were clearly explained return and follow-up instructions. Patient was instructed to follow up closely with her primary care provider. Patient feels comfortable with this plan. EKG Findings - EKG Comments: EKG Findings:: ED physician interpretation (interpreted by me): Normal sinus rhythm, incomplete right bundle branch block, no ectopy, ventricular rate of 87 bpm, normal UT and QRS intervals, normal QT interval, normal axis, no ST or T- wave abnormality Medical Decision Making - Medical Decision Making Was pt. sent in by a medical professional or institution (, PA, DEALER DEVELOPMENT MANAGER, urgent care, hospital, or longterm...) When possible be specific @ -No Did you speak to anyone other than the patient for history (EMS, parent, family, police, friend...)? What history was obtained from this source @ -History was obtained from EMS. Did you review nursing and triage notes (agree or disagree)? Why? @ -I reviewed and agree with nursing and triage notes Were old charts reviewed (outside hosp., previous admission, EMS record, old EKG, old radiological studies, urgent care reports/EKG's, longterm records)? Report findings @ -No old charts were reviewed Differential Diagnosis (chest pain, altered mental status, abdominal pain women, abdominal pain men, vaginal bleeding, weakness, fever, dyspnea, syncope, headache, dizziness, GI bleed, back pain, seizure, CVA, palpatations, mental health, musculoskeletal)? @ -Differential Altered Mental Status: Hypoglycemia, hyperglycemia, DKA, hypercapnia, ETOH, overdose, drug abuse, medication reaction, trauma, myxedema coma, encephalopathy, infection, psychiatric disease, psychosis, intercranial hemorrhage, hepatic encephalopathy, CVA, this is not meant to be an all-inclusive list EKG interpreted by me (3pts min.). @ -As above X-rays interpreted by me (1pt min.). @ -Chest x-ray was reviewed myself and shows no acute abnormality. I agree with the radiologist's interpretation as above. CT interpreted by me (1pt min.). @ -CT brain and cervical spine were reviewed myself and showed no acute abnormality. I agree with the radiologist's interpretations as above. U/S interpreted by me (1pt. min.). @ -None done What testing was considered but not performed or refused? (CT, X-rays, U/S, labs)? Why? @ -None What meds were considered but not given or refused? Why? @ -None Did you discuss the management of the patient with other professionals (professionals i.e. , PA, DEALER DEVELOPMENT MANAGER, lab, RT, psych nurse, social sciences professor, small arms artillery repairer, teacher, military police officer, porter sample case)? Give summary @ -No Was smoking cessation discussed for >3mins.? @ -No Was critical care preformed (if so, how long)? @ -No Were there social determinants of health that impacted care today? How? (Homelessness, low income, unemployed, alcoholism, drug addiction, transportation, low edu. Level, literacy, decrease access to med. care, usp, rehab)? @ -No Was there de-escalation of care discussed even if they declined (Discuss DNR or withdrawal of care, Hospice)? DNR status @ -No What co-morbidities impacted this encounter? (DM, HTN, Smoking, COPD, CAD, Cancer, CVA, ARF, Chemo, Hep., AIDS, mental health diagnosis, sleep apnea, mo rbid obesity)? @ -None Was patient admitted / discharged? Hospital course, mention meds given and route, prescriptions, significant lab abnormalities, going to OR and other pertinent info. @ -Patient has returned to her normal mental status while in the ED. Patient has been ambulatory in the ED without difficulty. Patient's mother reports that the patient has had similar symptoms in the past. Patient's ED workup is fairly unremarkable. I do not suspect an emergent medical condition at this time. Will discharge patient home with her mother at this time. Patient and mother feel comfortable with this plan. Undiagnosed new problem with uncertain prognosis? @ -No Drug Therapy requiring intensive monitoring for toxicity (Heparin, Nitro, Insulin, Cardizem)? @ -No Were any procedures done? @ -No Diagnosis/symptom? @ -Transient altered mental status Acute, or Chronic, or Acute on Chronic? @ -Acute Uncomplicated (without systemic symptoms) or Complicated (systemic symptoms)? @ -default Side effects of treatment? @ -No Exacerbation, Progression, or Severe Exacerbation? @ -No Poses a threat to life or bodily function? How? (Chest pain, USA, MA, pneumonia, PE, COPD, DKA, ARF, appy, cholecystitis, CVA, Diverticulitis, Homicidal, Suicidal, threat to staff... and all critical care pts) @ -No - Lab Data Result diagrams: 12/21/22 18:32 12/21/22 18:32 Lab Results 12/21/22 12/21/22 12/21/22 Range/Units 18:32 18:32 18:32 WBC 7.3 (3.8-10.6) k/uL RBC 4.92 (3.80-5.40) m/uL Hgb 15.5 (11.4-16.0) gm/dL Hct 46.6 H (34.0-46.0) % MCV 94.9 (80.0-100.0) fL MCH 31.6 (25.0-35.0) pg MCHC 33.3 (31.0-37.0) g/dL RDW 12.6 (11.5-15.5) % Plt Count 358 (150-450) k/uL MPV 8.1 Neutrophils % 66 % Lymphocytes % 27 % Monocytes % 4 % Eosinophils % 2 % Basophils % 1 % Neutrophils # 4.8 (1.3-7.7) k/uL Lymphocytes # 2.0 (1.0-4.8) k/uL Monocytes # 0.3 (0-1.0) k/uL Eosinophils # 0.1 (0-0.7) k/uL Basophils # 0.0 (0-0.2) k/uL PT 9.8 L (10.0-12.5) sec INR 0.9 (<1.2) APTT 25.0 (22.0-30.0) sec Sodium 136 L (137-145) mmol/L Potassium 5.1 (3.5-5.1) mmol/L Chloride 103 (98-107) mmol/L Carbon Dioxide 20 L (22-30) mmol/L Anion Gap 13 mmol/L BUN 10 (7-17) mg/dL Creatinine 0.74 (0.52-1.04) mg/dL Est GFR (CKD-EPI)AfAm >90 (>60 ml/min/1.73 sqM) Est GFR (CKD-EPI)NonAf >90 (>60 ml/min/1.73 sqM) Glucose 205 H (74-99) mg/dL POC Glucose (mg/dL) (70-110) mg/dL POC Glu Under Sheriff ID Calcium 9.5 (8.4-10.2) mg/dL Magnesium 2.2 (1.6-2.3) mg/dL Total Bilirubin 0.9 (0.2-1.3) mg/dL AST 36 (14-36) U/L ALT 14 (4-34) U/L Alkaline Phosphatase 49 (38-126) U/L Ammonia (<30) umol/L Troponin I (0.000-0.034) ng/mL Total Protein 8.9 H (6.3-8.2) g/dL Albumin 5.2 H (3.5-5.0) g/dL Urine Color Urine Appearance (Clear) Urine pH (5.0-8.0) Ur Specific Terry (1.001-1.035) Urine Protein (Negative) Urine Glucose (UA) (Negative) Urine Ketones (Negative) Urine Blood (Negative) Urine Nitrite (Negative) Urine Bilirubin (Negative) Urine Urobilinogen (<2.0) mg/dL Ur Leukocyte Esterase (Negative) Urine RBC (0-5) /hpf Urine WBC (0-5) /hpf Ur Squamous Epith Cells (0-4) /hpf Urine Bacteria (None) /hpf Urine Mucus (None) /hpf Urine HCG, Qual (Not Detectd) Urine Opiates Screen (NotDetected) Ur Oxycodone Screen (NotDetected) Urine Methadone Screen (NotDetected) Ur Propoxyphene Screen (NotDetected) Ur Barbiturates Screen (NotDetected) U Tricyclic Antidepress (NotDetected) Ur Phencyclidine Scrn (NotDetected) Ur Amphetamines Screen (NotDetected) U Methamphetamines Scrn (NotDetected) U Benzodiazepines Scrn (NotDetected) Urine Cocaine Screen (NotDetected) U Marijuana (THC) Screen (NotDetected) Serum Alcohol <10 mg/dL 12/21/22 12/21/22 12/21/22 Range/Units 18:32 18:32 18:32 WBC (3.8-10.6) k/uL RBC (3.80-5.40) m/uL Hgb (11.4-16.0) gm/dL Hct (34.0-46.0) % MCV (80.0-100.0) fL MCH (25.0-35.0) pg MCHC (31.0-37.0) g/dL RDW (11.5-15.5) % Plt Count (150-450) k/uL MPV Neutrophils % % Lymphocytes % % Monocytes % % Eosinophils % % Basophils % % Neutrophils # (1.3-7.7) k/uL Lymphocytes # (1.0-4.8) k/uL Monocytes # (0-1.0) k/uL Eosinophils # (0-0.7) k/uL Basophils # (0-0.2) k/uL PT (10.0-12.5) sec INR (<1.2) APTT (22.0-30.0) sec Sodium (137-145) mmol/L Potassium (3.5-5.1) mmol/L Chloride (98-107) mmol/L Carbon Dioxide (22-30) mmol/L Anion Gap mmol/L BUN (7-17) mg/dL Creatinine (0.52-1.04) mg/dL Est GFR (CKD-EPI)AfAm (>60 ml/min/1.73 sqM) Est GFR (CKD-EPI)NonAf (>60 ml/min/1.73 sqM) Glucose (74-99) mg/dL POC Glucose (mg/dL) 145 H (70-110) mg/dL POC Glu Under Sheriff ID Mohsen Moran Calcium (8.4-10.2) mg/dL Magnesium (1.6-2.3) mg/dL Total Bilirubin (0.2-1.3) mg/dL AST (14-36) U/L ALT (4-34) U/L Alkaline Phosphatase (38-126) U/L Ammonia <9 (<30) umol/L Troponin I <0.012 (0.000-0.034) ng/mL Total Protein (6.3-8.2) g/dL Albumin (3.5-5.0) g/dL Urine Color Urine Appearance (Clear) Urine pH (5.0-8.0) Ur Specific Terry (1.001-1.035) Urine Protein (Negative) Urine Glucose (UA) (Negative) Urine Ketones (Negative) Urine Blood (Negative) Urine Nitrite (Negative) Urine Bilirubin (Negative) Urine Urobilinogen (<2.0) mg/dL Ur Leukocyte Esterase (Negative) Urine RBC (0-5) /hpf Urine WBC (0-5) /hpf Ur Squamous Epith Cells (0-4) /hpf Urine Bacteria (None) /hpf Urine Mucus (None) /hpf Urine HCG, Qual (Not Detectd) Urine Opiates Screen (NotDetected) Ur Oxycodone Screen (NotDetected) Urine Methadone Screen (NotDetected) Ur Propoxyphene Screen (NotDetected) Ur Barbiturates Screen (NotDetected) U Tricyclic Antidepress (NotDetected) Ur Phencyclidine Scrn (NotDetected) Ur Amphetamines Screen (NotDetected) U Methamphetamines Scrn (NotDetected) U Benzodiazepines Scrn (NotDetected) Urine Cocaine Screen (NotDetected) U Marijuana (THC) Screen (NotDetected) Serum Alcohol mg/dL 12/21/22 12/21/22 Range/Units 20:55 20:55 WBC (3.8-10.6) k/uL RBC (3.80-5.40) m/uL Hgb (11.4-16.0) gm/dL Hct (34.0-46.0) % MCV (80.0-100.0) fL MCH (25.0-35.0) pg MCHC (31.0-37.0) g/dL RDW (11.5-15.5) % Plt Count (150-450) k/uL MPV Neutrophils % % Lymphocytes % % Monocytes % % Eosinophils % % Basophils % % Neutrophils # (1.3-7.7) k/uL Lymphocytes # (1.0-4.8) k/uL Monocytes # (0-1.0) k/uL Eosinophils # (0-0.7) k/uL Basophils # (0-0.2) k/uL PT (10.0-12.5) sec INR (<1.2) APTT (22.0-30.0) sec Sodium (137-145) mmol/L Potassium (3.5-5.1) mmol/L Chloride (98-107) mmol/L Carbon Dioxide (22-30) mmol/L Anion Gap mmol/L BUN (7-17) mg/dL Creatinine (0.52-1.04) mg/dL Est GFR (CKD-EPI)AfAm (>60 ml/min/1.73 sqM) Est GFR (CKD-EPI)NonAf (>60 ml/min/1.73 sqM) Glucose (74-99) mg/dL POC Glucose (mg/dL) (70-110) mg/dL POC Glu Under Sheriff ID Calcium (8.4-10.2) mg/dL Magnesium (1.6-2.3) mg/dL Total Bilirubin (0.2-1.3) mg/dL AST (14-36) U/L ALT (4-34) U/L Alkaline Phosphatase (38-126) U/L Ammonia (<30) umol/L Troponin I (0.000-0.034) ng/mL Total Protein (6.3-8.2) g/dL Albumin (3.5-5.0) g/dL Urine Color Colorless Urine Appearance Cloudy H (Clear) Urine pH 6.0 (5.0-8.0) Ur Specific Terry 1.009 (1.001-1.035) Urine Protein Negative (Negative) Urine Glucose (UA) Negative (Negative) Urine Ketones Negative (Negative) Urine Blood Negative (Negative) Urine Nitrite Negative (Negative) Urine Bilirubin Negative (Negative) Urine Urobilinogen <2.0 (<2.0) mg/dL Ur Leukocyte Esterase Negative (Negative) Urine RBC 2 (0-5) /hpf Urine WBC 2 (0-5) /hpf Ur Squamous Epith Cells 22 H (0-4) /hpf Urine Bacteria Rare H (None) /hpf Urine Mucus Occasional H (None) /hpf Urine HCG, Qual Not Detected (Not Detectd) Urine Opiates Screen Not Detected (NotDetected) Ur Oxycodone Screen Not Detected (NotDetected) Urine Methadone Screen Not Detected (NotDetected) Ur Propoxyphene Screen Not Detected (NotDetected) Ur Barbiturates Screen Not Detected (NotDetected) U Tricyclic Antidepress Not Detected (NotDetected) Ur Phencyclidine Scrn Not Detected (NotDetected) Ur Amphetamines Screen Detected H (NotDetected) U Methamphetamines Scrn Not Detected (NotDetected) U Benzodiazepines Scrn Not Detected (NotDetected) Urine Cocaine Screen Not Detected (NotDetected) U Marijuana (THC) Screen Detected H (NotDetected) Serum Alcohol mg/dL - Radiology Data Chest x-ray: No acute cardiopulmonary disease/process. Noncontrast CT brain: No acute intracranial process. Noncontrast CT cervical spine: No evidence of cervical spine fracture. Disposition Clinical Impression: Altered mental status, Marijuana abuse Disposition: HOME SELF-CARE Condition: Stable Instructions (If sedation given, give patient instructions): Cannabis Abuse (ED), Altered Mental Status (ED) Additional Instructions: Return to the ER immediately should you develop drowsiness, any significant pain, a fever, shortness of breath, feeling dizzy or faint, or new or worsening symptoms. Follow up closely with your primary care provider. Is patient prescribed a controlled substance at d/c from ED?: No Referrals: None,Stated [Primary Care Provider] - 1-2 days Narendra Cline DO [STAFF PHYSICIAN] - 1-2 days Time of Disposition: 22:30
[2022-12-21 18:58] LABS: Basophils % (A) 1 %; Eosinophils # (A) 0.1 k/uL (0-0.7); Eosinophils % (A) 2 %; HCT 46.6 % (34.0-46.0); HGB 15.5 gm/dL (11.4-16.0); Lymphocytes % (A) 27 %; MCH 31.6 pg (25.0-35.0); MCHC 33.3 g/dL (31.0-37.0); MCV 94.9 fL (80.0-100.0); Mean Platelet Volume 8.1; Monocytes # (A) 0.3 k/uL (0-1.0); Monocytes % (A) 4 %; Neutrophils # (A) 4.8 k/uL (1.3-7.7); Neutrophils % (A) 66 %; Platelet Count 358 k/uL (150-450); RBC 4.92 m/uL (3.80-5.40); RDW 12.6 % (11.5-15.5); WBC 7.3 k/uL (3.8-10.6)
[2022-12-21 19:10] LABS: ALT 14 U/L (4-34); AST 36 U/L (14-36); African American GFR (CKD) >90 (>60 ml/min/1.73 sqM); Albumin 5.2 g/dL (3.5-5.0); Alcohol <10 mg/dL; Alkaline Phosphatase 49 U/L (38-126); Anion Gap 13 mmol/L; Blood Urea Nitrogen 10 mg/dL (7-17); Calcium 9.5 mg/dL (8.4-10.2); Carbon Dioxide 20 mmol/L (22-30); Chloride 103 mmol/L (98-107); Glucose 205 mg/dL (74-99); Magnesium 2.2 mg/dL (1.6-2.3); Non-African American GFR(CKD) >90 (>60 ml/min/1.73 sqM); Sodium 136 mmol/L (137-145); Total Bilirubin 0.9 mg/dL (0.2-1.3); Total Protein 8.9 g/dL (6.3-8.2)
[2022-12-21 19:18] LABS: Potassium 5.1 mmol/L (3.5-5.1)
--- NOTE | 2022-12-21 19:26 | XR ---
EXAMINATION TYPE: XR chest 1V portable DATE OF EXAM: 12/21/2022 7:21 PM CLINICAL INDICATION:Female, 47 years old with history of altered mental status. COMPARISON: Chest radiographs from TECHNIQUE: XR chest 1V portable Frontal view of the chest. FINDINGS: Lungs/Pleura: There is no evidence of pleural effusion, focal consolidation, or pneumothorax. Pulmonary vascularity: Unremarkable. Heart/mediastinum: Cardiomediastinal silhouette is unremarkable. Musculoskeletal: No acute osseous pathology. IMPRESSION: No acute cardiopulmonary disease/process.
--- NOTE | 2022-12-21 19:33 | CT ---
EXAMINATION TYPE: CT brain cspine wo con CT DLP: 1378.8 mGycm, Automated exposure control for dose reduction was used. DATE OF EXAM: 12/21/2022 7:21 PM COMPARISON: None. CLINICAL INDICATION:Female, 47 years old with history of altered mental status. TECHNIQUE: Brain: Multiple axial CT images of the brain were obtained without IV contrast. Cspine: Axial CT images from the skull base to the inferior aspect of T2 we obtained without intraven ous contrast. Coronal and sagittal reformatted images were also reviewed. FINDINGS: Brain: Extra-axial spaces: No abnormal extra-axial fluid collections. Ventricular system: Within normal limits Cerebral parenchyma: No acute intraparenchymal hemorrhage or mass effect. The almodovar-white junction is well differentiated. Cerebellum: Unremarkable. Mass effect: No evidence of midline shift. Intracranial vasculature: unremarkable Soft tissues: Normal. Calvarium/osseous structures: No depressed skull fracture. Paranasal sinuses and mastoid air cells: Clear. Visualized orbits: Orbital contents are intact. Cervical spine: Fracture: None. Osseous structures: Mild multilevel degenerative changes of the cervical spine are present. Vertebral alignment: There is straightening of the normal cervical lordotic curve, likely related to patient position. Spinal canal/Neural Foramina: No evidence of significant spinal canal narrowing. No evidence for sign ificant neural foraminal stenosis. Neck soft tissues: Prevertebral soft tissues are within normal limits. Other: The airway is patent. The lung apices are clear. IMPRESSION: CT brain: No acute intracranial process. CT cervical spine: No evidence of cervical spine fracture.
[2022-12-21 20:08] LABS: INR 0.9 (<1.2); Prothrombin Time 9.8 sec (10.0-12.5)
[2022-12-21 21:48] LABS: Appearance,Urine Cloudy (Clear); Bacteria,Urine Rare /hpf; Bilirubin,Urine Negative (Negative); Blood,Urine Negative (Negative); Color,Urine Colorless; Glucose,Urine (UA) Negative (Negative); Ketones,Urine Negative (Negative); Leukocyte Esterase,Urine Negative (Negative); Mucus,Urine Occasional /hpf; Nitrite,Urine Negative (Negative); Protein,Urine Negative (Negative); RBC,Urine 2 /hpf (0-5); Specific Gravity,Urine 1.009 (1.001-1.035); Squamous Epithelial Cell,Urine 22 /hpf (0-4); Urobilinogen,Urine <2.0 mg/dL (<2.0); WBC,Urine 2 /hpf (0-5)
[2022-12-21 22:04] LABS: Cocaine Screen,Urine Not Detected (NotDetected); Opiate Screen,Urine Not Detected (NotDetected); Phencyclidine Screen,Urine Not Detected (NotDetected); Urn Cannabinoid Scrn Detected (NotDetected)
[2022-12-21 22:05] LABS: Amphetamine Screen,Urine Detected (NotDetected); Barbiturate Screen,Urine Not Detected (NotDetected); Benzodiazepines Screen,Urine Not Detected (NotDetected); Methadone Screen, Urine Not Detected (NotDetected); Oxycodone Screen, Urine Not Detected (NotDetected); Tricyclic Antidepressant,Urine Not Detected (NotDetected)
[2022-12-21 22:52] VITALS: BP 113/79; PULSE 97; TEMP 97.9
== END 2022-12-21 22:40 | disposition home or self-care (01) ==
LOC: EC 18:23
DX: R41.82 Altered mental status, unspecified (principal); F12.10 Cannabis abuse, uncomplicated; I45.10 Unspecified right bundle-branch block; J45.909 Unspecified asthma, uncomplicated; Y90.0 Blood alcohol level of less than 20 mg/100 ml; Z87.891 Personal history of nicotine dependence; Z88.0 Allergy status to penicillin; Z90.49 Acquired absence of other specified parts of digestive tract
CPT/HCPCS: 99285; 96374; 36415; 93005; 80053; 82140; 83735; 84484; 85025; 85610; 85730; 81001; 81025; 80306; 71045; 72125; 70450; G0480; J2310; 80320

== ENCOUNTER → 2023-01-27 | Outpatient (CLI) | payer OTHER ==
--- NOTE | 2023-03-01 01:53 | EM ---
EVENT MONITOR The patient was monitored between January 27, 2023 and February 22, 2023. The rhythm strip revealed a sinus mechanism with normal conduction. The episode of sinus tachycardia was noted. No atrial fibrillation was noted. No pauses were noted. No symptoms were reported. MMBARI / LJN: [id number] /
== END | disposition home or self-care (01) ==
LOC: RADECHMAIN 07:43
PROVIDERS: ATTEND Pediatrics
DX: R55 Syncope and collapse (principal); R00.0 Tachycardia, unspecified
CPT/HCPCS: 93270